=== PATIENT | female | born 1945 | race Caucasian/White ===

== ENCOUNTER 2016-10-20 13:34 | Emergency (ER) | payer OTHER ==
[2016-10-20 13:40] VITALS: BMI 27.8
--- NOTE | 2016-10-20 14:43 | PDOC ---
History of Present Illness - General History Source: Patient Exam Limitations: No Limitations <Sumi West - Last Filed: 10/20/16 18:34> <Grace Kim - Last Filed: 10/27/16 07:38> - General Chief Complaint: Chest Pain Stated Complaint: CHEST PAIN/PALPALTIONS Time Seen by Provider: 10/20/16 14:27 - History of Present Illness Initial Comments: CHIEF COMPLAINT: 71 y/o afebrile female with PMH HTN, DM, GERD and hypothyroidism c/o chest pain and palpitations since last night. HISTORY OF PRESENT ILLNESS: The patient denies f/c, n/v/d, SOB, abd pain, back pain, hematuria, dysuria. PCP is Dr. Stewart Exhibits Curator is Dr. Leal Vital signs on arrival are notable for pulse of 95. REVIEW OF SYSTEMS: GENERAL/CONSTITUTIONAL: No fever/chills. No weakness. No weight change. HEAD, EYES, EARS, NOSE AND THROAT: No change in vision. No ear pain or discharge. No sore throat. CARDIOVASCULAR: +chest pain. +palpitations. No shortness of breath. RESPIRATORY: No cough, wheezing, or hemoptysis. GASTROINTESTINAL: No abd pain, nausea, vomiting, diarrhea. GENITOURINARY: No dysuria, frequency, or change in urination. MUSCULOSKELETAL: No joint or muscle swelling or pain. No neck or back pain. SKIN: No rash or easy bruising. NEUROLOGIC: No headache, vertigo, loss of consciousness, or loss of sensation. PSYCHIATRIC: No depression or anxiety. ENDOCRINE: No increased thirst. No abnormal weight change. HEMATOLOGIC/LYMPHATIC: No anemia, easy bleeding, or history of blood clots. ALLERGIC/IMMUNOLOGIC: No hives or skin allergy. No latex allergy. PHYSICAL EXAM: GENERAL: The patient is awake, alert, and fully oriented, in no acute distress. She is well appearing, in NAD or obvious discomfort. HEAD: Normal with no signs of trauma. ENT: Pupils equal, round and reactive to light, extraocular movements intact, sclera anicteric, conjunctiva clear. Neck supple. LUNGS: Clear to auscultation bilaterally. Normal excursion. No respiratory distress or use of accessory muscles. CV: RRR, S1/S2, no MRG. Cap refill < 2 sec. ABDOMEN: Soft, non-distended, non-tender even to deep palpation, no hepatomegaly or splenomegaly, no masses. EXTREMITIES: Normal range of motion, no edema. NEUROLOGICAL: Normal speech, normal gait. CN II-XII grossly intact. PSYCH: Normal mood, normal affect. SKIN: Warm, dry, normal turgor, no rashes or lesions noted. (Sumi West) Past History - Past Medical History Cardiac Disorders: Yes (thyroid) Diabetes: Yes HTN: Yes Hypercholesterolemia: Yes - Surgical History Cholecystectomy: Yes Neurologic Surgery: No - Psycho/Social/Smoking Cessation Hx Anxiety: Yes Suicidal Ideation: Yes Smoking History: Never smoked Have you smoked in the past 12 months: No Information on smoking cessation initiated: No Hx Alcohol Use: No Substance Use Type: None <Sumi West - Last Filed: 10/20/16 18:34> <Grace Kim - Last Filed: 10/27/16 07:38> - Past Medical History Allergies/Adverse Reactions: Allergies Allergy/AdvReac Type Severity Reaction Status Date / Time No Known Allergies Allergy Verified 10/20/16 13:41 Home Medications: Ambulatory Orders Enalapril Maleate [Vasotec] 20 mg PO DAILY 04/16/16 Metformin HCl 500 mg PO BID 04/16/16 Omeprazole [Prilosec (RX)] 20 mg PO DAILY 04/16/16 Aspirin [ASA -] 81 mg PO DAILY 09/29/16 Calcitriol [Calcitriol -] 0.25 mcg PO BID #30 capsule 09/30/16 Calcium (Oyster Shell) [Os-Remy 500MG -] 1 tab PO BID 10/20/16 Levothyroxine Sodium [Levo-T] 100 mcg PO DAILY 10/20/16 - Vital Signs Last Vital Signs Temp Pulse Resp BP Pulse Ox 100.7 F H 86 16 120/50 96 10/20/16 18:43 10/20/16 18:43 10/20/16 18:43 10/20/16 18:43 10/20/16 18:43 Heart Score/ECG Review <Sumi West - Last Filed: 10/20/16 18:34> <Grace Kim - Last Filed: 10/27/16 07:38> - ECG Intrepretation Comment:: Twelve-lead EKG was performed and reviewed by Dr. Kim. There is normal sinus rhythm with a normal rate. Left axis deviation. The intervals are normal. There are no ST or T wave abnormalities. Impression: Abnormal twelve-lead EKG (Sumi West) ED Treatment Course - LABORATORY CBC & Chemistry Diagram: 10/20/16 14:40 10/20/16 14:40 <Sumi West - Last Filed: 10/20/16 18:34> - LABORATORY CBC & Chemistry Diagram: 10/20/16 14:40 10/20/16 14:40 <Grace Kim - Last Filed: 10/27/16 07:38> - ADDITIONAL ORDERS Additional order review: 10/20/16 14:40 RBC 4.34 MCV 93.4 MCHC 32.7 RDW 13.7 MPV 7.8 Neutrophils % 74.5 D Lymphocytes % 11.2 D Monocytes % 14.1 H Eosinophils % 0.1 D Basophils % 0.1 - RADIOLOGY Radiology Studies Ordered: Category Date Time Status CHEST X-RAY PORTABLE* [RAD] Stat Radiology 10/20/16 14:05 Completed - Medications Given in the ED: ED Medications Discontinued Medications Generic Name Dose Route Start Last Admin Trade Name Freq PRN Reason Stop Dose Admin Ketorolac Tromethamine 30 mg 10/20/16 18:31 10/20/16 18:39 Toradol Injection - IVPUSH 10/20/16 18:32 30 mg ONCE ONE Administration Medical Decision Making <Sumi West - Last Filed: 10/20/16 18:34> <Grace Kim - Last Filed: 10/27/16 07:38> - Medical Decision Making A/P: 71 y/o afebrile female with chest pain and palpitations since last night. Plan is as follows: 1. EKG 2. Labs 3. CXR CXR IMPRESSION: No acute disease. EKG normal Labs normal; patient has had symptoms for the past 24 hours so troponin should have been elevated by now. TSH - 5.86; down from 62 on 09/29/16. The patient was given her results and toradol. Suggested she take PO ibuprofen for pain and f/u with Dr. Stewart and Dr. Leal as soon as possible. Instructed her to return to the ER with any worsening or concerning symptoms. The patient verbalizes understanding of all instructions, has no further questions and is awaiting discharge. (Sumi West) *DC/Admit/Observation/Transfer <Sumi West - Last Filed: 10/20/16 18:34> <Grace Kim - Last Filed: 10/27/16 07:38> Diagnosis at time of Disposition: Atypical chest pain, Elevated TSH - Discharge Dispostion Disposition: HOME Condition at time of disposition: Good - Referrals Referrals: Dixon Stewart [Primary Care Provider] - Call tomorrow Adolph Leal MD [Staff Physician] - Call tomorrow - Patient Instructions Printed Discharge Instructions: DI for Atypical Chest Pain Additional Instructions: Discharge Instructions: -Take 600mg of over the counter Ibuprofen for pain with food if needed -Call Dr. Stewart and Dr. Leal tomorrow for follow up -Your TSH was 5.86. Please inform Dr. Stewart as he may need to increase your levothyroxine dose -Return to the ER with any worsening or concerning symptoms - Attestations Physician Attestion: I reviewed the case with the mid-level practitioner and agree with the mid- level practitioner's assessment, diagnosis and disposition. (Grace Kim)
[2016-10-20 15:15] LABS: BASOPHIL 0.1 % (0-2.0); EOSINOPHIL 0.1 % (0-4.5); MCH 30.6 pg (25.7-33.7); MCHC 32.7 g/dl (32.0-36.0); MEAN CELL VOLUME 93.4 fl (80-96); MEAN PLT VOLUME 7.8 fl (7.5-11.1); NEUTROPHILS 74.5 % (42.8-82.8); PLATELET COUNT 159 K/MM3 (134-434); RDW 13.7 % (11.6-15.6); WHITE BLOOD COUNT 6.3 K/mm3 (4.0-10.0)
[2016-10-20 15:48] LABS: ALBUMIN 4.3 g/dl (3.4-5.0); ANION GAP 9 (8-16); BILIRUBIN,TOTAL 0.6 mg/dL (0.2-1.0); CALCIUM 8.3 mg/dL (8.5-10.1); CO2 31 mmol/L (21-32); CREATININE 0.8 mg/dL (0.55-1.02); GLUCOSE,RANDOM 93 mg/dL (74-106); SGOT/AST 23 U/L (15-37); SGPT/ALT 25 U/L (12-78); TOT PROT 7.5 g/dl (6.4-8.2)
[2016-10-20 15:49] LABS: ALK PHOS 48 U/L (45-117)
[2016-10-20 15:56] LABS: THYROID STIMULATING HORMONE 5.86 uIU/ml (0.358-3.74); TROPONIN I < 0.02 ng/ml (0.00-0.05)
--- NOTE | 2016-10-20 17:19 | EKG ---
Test Reason : Blood Pressure : / mmHG Vent. Rate : 093 BPM Atrial Rate : 093 BPM P-R Int : 140 ms QRS Dur : 106 ms QT Int : 366 ms P-R-T Axes : 021 -42 033 degrees QTc Int : 455 ms NORMAL SINUS RHYTHM LEFT AXIS DEVIATION ABNORMAL ECG WHEN COMPARED WITH ECG OF 29-SEP-2016 06:45, VENT. RATE HAS INCREASED Confirmed by ARIS CERVANTES MD ([id number]) on 10/20/2016 5:18:37 PM Referred By: Confirmed By:ARIS CERVANTES MD
[2016-10-20] MEDS ORDERED: KETOROLAC TROMETHAMINE 30 MG/1 ML VIAL IVPUSH ONE (18:31)
[2016-10-20] MEDS ORDERED: KETOROLAC TROMETHAMINE 30 MG/1 ML VIAL ONE (18:36)
[2016-10-20 18:44] VITALS: BP 120/50; PULSE 86; TEMP 100.7
== END 2016-10-20 19:08 | disposition home or self-care (01) ==
LOC: JER 13:34
PROC: 3E0333Z Introduction of Anti-inflammatory into Peripheral Vein, Percutaneous Approach (ICD-10-PCS; principal; 2016-10-20)
DX: R07.89 Other chest pain (principal); I10 Essential (primary) hypertension; E11.9 Type 2 diabetes mellitus without complications; Z79.84 Long term (current) use of oral hypoglycemic drugs; E78.00 Pure hypercholesterolemia, unspecified; E03.9 Hypothyroidism, unspecified
CPT/HCPCS: 36415; 71010-TC; 80053; 82550; 84439; 84443; 84481; 84484; 85025; 93005; 93010; 96374; 99284-25

== ENCOUNTER 2016-10-31 14:21 | Emergency (ER) | payer OTHER ==
[2016-10-31 14:42] VITALS: TEMP 98; BMI 25.7
[2016-10-31] MEDS ORDERED: ACETAMINOPHEN 325 MG TABLET (FP) PO ONE (15:53)
--- NOTE | 2016-10-31 15:54 | PDOC ---
History of Present Illness - General History Source: Patient - History of Present Illness Initial Comments: 10/31/16 16:52 The patient is a 71 year old Moroccan speaking female with a significant past medical history of HTN, DM, and thyroid disease s/p resection who presents to the Emergency Department with complaints of 100.3 fever, bodyache, productive cough with yellowish sputum, and palpitations for several days. Pt also reports experiencing a sharp chest pain when she coughs, but she denies any other chest pain or SOB. She denies taking any recent Tylenol or Motrin. Pt was given Z-Praful recently by Dr. Stewart for her symptoms. She denies abdominal pain, nausea, vomiting, diarrhea, hematuria, dysuria, legs swelling, headache, hemoptysis. No recent travel or sick contacts. PCP: Dr. Stewart <Yuli Chang - Last Filed: 10/31/16 16:52> <Omer Avendano - Last Filed: 11/02/16 11:49> - General Chief Complaint: Palpitations Stated Complaint: HEART PALPITATIONS/fever Time Seen by Provider: 10/31/16 15:15 Past History <Yuli Chang - Last Filed: 10/31/16 16:52> - Past Medical History Cardiac Disorders: Yes (thyroid) Diabetes: Yes HTN: Yes Hypercholesterolemia: Yes - Surgical History Cholecystectomy: Yes Neurologic Surgery: No - Psycho/Social/Smoking Cessation Hx Anxiety: Yes Suicidal Ideation: Yes Smoking History: Never smoked Have you smoked in the past 12 months: No Information on smoking cessation initiated: No Hx Alcohol Use: No Drug/Substance Use Hx: No Substance Use Type: None <Omer Avendano - Last Filed: 11/02/16 11:49> - Past Medical History Allergies/Adverse Reactions: Allergies Allergy/AdvReac Type Severity Reaction Status Date / Time No Known Allergies Allergy Verified 10/31/16 14:39 Home Medications: Ambulatory Orders Acetaminophen [Tylenol -] 1,000 mg PO Q6H 10/31/16 Alendronate Na [Fosamax] 35 mg PO Q7D 10/31/16 Aspirin [ASA -] 81 mg PO DAILY 10/31/16 Calcitriol [Rocaltrol -] 0.25 mcg PO BID 10/31/16 Calcium (Oyster Shell) [Os-Remy 500Mg -] 500 mg NR BID 10/31/16 Diphenhydramine HCl/Zinc Acet [Benadryl 2% Cream] 1 applic TP ASDIR 10/31/16 Divalproex Sodium [Depakote] 500 mg PO BID 10/31/16 Enalapril Maleate [Vasotec] 20 mg PO DAILY 10/31/16 Levothyroxine [Synthroid -] 100 mcg PO DAILY 10/31/16 Meclizine HCl 25 mg PO DAILY 10/31/16 Metformin HCl [Metformin HCl ER] 500 mg PO BID 10/31/16 Omeprazole 20 mg PO DAILY 10/31/16 Simvastatin [Zocor -] 20 mg PO HS 10/31/16 Review of Systems - Review of Systems Able to Perform ROS?: Yes Comments:: 10/31/16 16:53 CONSTITUTIONAL: Yes: bodyache, fever No reported: Chills, Diaphoresis, Malaise, Loss of Appetite HEENT: No reported: Rhinorrhea, Nasal Congestion, Throat Pain, Throat Swelling, Difficulty Swallowing, Mouth Swelling, Ear Pain, Eye Pain, Visual Changes CARDIOVASCULAR: Yes: palpitations No reported: Chest Pain, Syncope, Lightheadedness, Peripheral Edema RESPIRATORY: Yes: cough No reported: Shortness of Breath, SOB with Exertion, Orthopnea, Wheezing, Stridor, Hemoptysis GASTROINTESTINAL: No reported: Abdominal pain, Abdominal Distension, Nausea, Vomiting, Diarrhea, Constipation, Melena, Hematochezia GENITOURINARY: No reported: Dysuria, Frequency, Urgency, Hesitancy, Flank Pain, Genital Pain MUSCULOSKELETAL: No reported: Myalgia, Arthralgia, Joint Swelling, Back pain, Neck Pain SKIN: No reported: Rash, Itching, Pallor HEMEATOLOGIC/IMMUNOLOGIC: No reported: Easy Bleeding, Easy Bruising, Lymphadenopathy, Frequent infections ENDOCRINE: No reported: Unexplained Weight Gain, Unexplained Weight Loss, Heat Intolerance , Cold Intolerance NEUROLOGIC: No reported: Headache, Focal Weakness, Paresthesias, Vertigo, Lightheadedness, Unsteady Gait, Seizure, Mental Status Changes, Incontinence PSYCHIATRIC: No reported: Anxiety, Depression All Other Systems: Reviewed and Negative <Yuli Chang - Last Filed: 10/31/16 16:52> *Physical Exam - Vital Signs Last Vital Signs Temp Pulse Resp BP Pulse Ox 98.0 F 88 18 151/85 100 10/31/16 14:40 10/31/16 16:43 10/31/16 14:40 10/31/16 14:40 10/31/16 16:43 - Physical Exam Comments: 10/31/16 16:53 GENERAL: The patient is awake, alert, and fully oriented, Nontoxic - in no acute distress. HEAD: Normocephalic, atraumatic. EYES: extraocular movements intact, sclera anicteric, conjunctiva clear. ENT: Normal voice, Moist mucous membranes. NECK: Normal range of motion, supple LUNGS: Breath sounds equal, clear to auscultation bilaterally. No wheezes, no rhonchi, no rales. HEART: Regular rate and rhythm, without murmur, rub or gallop. ABDOMEN: Soft, nontender, normoactive bowel sounds. No guarding, no rebound.No CVA tenderness EXTREMITIES: Normal range of motion, no edema. No clubbing or cyanosis. No cords, erythema, or tenderness. NEUROLOGICAL: No facial assymetry, Normal speech, PSYCH: Normal mood, normal affect. SKIN: Warm, Dry, normal turgor, <Yuli Chang - Last Filed: 10/31/16 16:52> - Vital Signs Last Vital Signs Temp Pulse Resp BP Pulse Ox 98.0 F 90 18 151/85 96 10/31/16 14:40 10/31/16 14:40 10/31/16 14:40 10/31/16 14:40 10/31/16 14:40 <Omer Avendano - Last Filed: 11/02/16 11:49> Heart Score/ECG Review - ECG Impressions Comment:: 10/31/16 15:53 Twelve-lead EKG was performed and reviewed by me. There is normal sinus rhythm with a normal rate. Rate of 78 Left axis deviation The intervals are normal. There is normal R wave progression There are no ST or T wave abnormalities. <Omer Avendano - Last Filed: 11/02/16 11:49> ED Treatment Course - LABORATORY CBC & Chemistry Diagram: 10/31/16 15:41 10/31/16 15:41 - ADDITIONAL ORDERS Additional order review: Laboratory Results 10/31/16 15:41 Sodium 143 Potassium 4.3 Chloride 103 Carbon Dioxide 29 Anion Gap 11 BUN 6 L D Creatinine 0.6 D Creat Clearance w eGFR > 60 Random Glucose 100 Calcium 7.4 L Total Bilirubin 0.6 AST 28 D ALT 51 D Alkaline Phosphatase 43 L Creatine Kinase 70 Troponin I < 0.02 Total Protein 7.1 Albumin 4.0 10/31/16 15:41 RBC 4.25 MCV 93.4 MCHC 33.9 RDW 13.7 MPV 7.5 Neutrophils % 61.4 Lymphocytes % 25.7 D Monocytes % 12.0 H Eosinophils % 0.1 Basophils % 0.8 D - Medications Given in the ED: ED Medications Discontinued Medications Generic Name Dose Route Start Last Admin Trade Name Crista PRN Reason Stop Dose Admin Acetaminophen 650 mg 10/31/16 15:53 10/31/16 16:21 Tylenol - PO 10/31/16 15:54 650 mg ONCE ONE Administration <Yuli Chang - Last Filed: 10/31/16 16:52> - LABORATORY CBC & Chemistry Diagram: 10/31/16 15:41 10/31/16 15:41 <Omer Avendano - Last Filed: 11/02/16 11:49> Medical Decision Making - Medical Decision Making 10/31/16 15:51 71y M hx of htn, hl, thyoroid disease s/p resection, presents with palpitation s - the patient endorses some fever/body aches for the past few days associated with chest congestion, and feeling generally weak. On exam the pt is well appearing in no distress, vitals were normal here. ?flue like illness will ck ekg to r/o arrthmia will ck ua to r/o uti cxr to r/o pna will ck labs to r/o leukocytosis, anemia, metabolic derangement. 10/31/16 17:47 pts labs reviewed ca low - pt states she has been skipping occasional doses of her calcium (s/p parathyroid resection along with her thyroid) pt also on calcitriol i discussed importance of taking her ca (pt states she doesnt like taking so many pills every day). cxr negative flu negative will dc the pt with pmd fu return precautions were discussed I discussed the physical exam findings, ancillary test results and final diagnoses with the patient. I answered all of the patient's questions. The patient was satisfied with the care received and felt comfortable with the discharge plan and treatment plan. The patient will call their primary care physician within 24 hours to arrange follow-up and will return to the Emergency Department with any new, persistent or worsening symptoms. <Omer Avendano - Last Filed: 11/02/16 11:49> *DC/Admit/Observation/Transfer - Attestations Scribe Attestion: 10/31/16 16:53 Documentation prepared by Yuli Chang, acting as medical claims assistant for Omer Avendano MD. <Yuli Chang - Last Filed: 10/31/16 16:52> - Discharge Dispostion Admit: No <Omer Avendano - Last Filed: 11/02/16 11:49> Diagnosis at time of Disposition: Flu-like symptoms, Palpitations, Hypocalcemia - Discharge Dispostion Disposition: HOME Condition at time of disposition: Improved - Referrals Referrals: Dixon Stewart [Primary Care Provider] - - Patient Instructions Printed Discharge Instructions: DI for Viral Upper Respiratory Infection -- Adult Additional Instructions: Vuelva al departamento de emergencia inmediatamente con CUALQUIER nuevo, persistente o empeorando los sntomas incluyendo cualquier dificultad que respira, dolor de pecho fiebre persistente u otras preocupaciones. Debe llamar y hacer el seguimiento con snow mdico en 2-3 pizano para devante evaluaci n ms detallada de doug sntomas. Los resultados fueron discutidos con usted. Por favor, asegrese de que snow mdico revise los resultados de snow evaluacin de emergencia. Return to the emergency department immediately with ANY new, persistent or worsening symptoms including any difficulty breathing, chest pain persistent fever or other concerns. You MUST call and follow up with your doctor in 2-3 days for further evaluation of your symptoms. Results were discussed with you. Please make sure your doctor reviews the results of your emergency evaluation. Print Language: MAURITIAN
[2016-10-31 15:59] LABS: BASOPHIL 0.8 % (0-2.0); EOSINOPHIL 0.1 % (0-4.5); MCH 31.7 pg (25.7-33.7); MCHC 33.9 g/dl (32.0-36.0); MEAN CELL VOLUME 93.4 fl (80-96); MEAN PLT VOLUME 7.5 fl (7.5-11.1); NEUTROPHILS 61.4 % (42.8-82.8); PLATELET COUNT 245 K/MM3 (134-434); RDW 13.7 % (11.6-15.6); WHITE BLOOD COUNT 6.4 K/mm3 (4.0-10.0)
[2016-10-31] MEDS ORDERED: ACETAMINOPHEN 325 MG TABLET (FP) ONE (16:19)
[2016-10-31 16:43] LABS: ANION GAP 11 (8-16); BILIRUBIN,TOTAL 0.6 mg/dL (0.2-1.0); CALCIUM 7.4 mg/dL (8.5-10.1); CO2 29 mmol/L (21-32); CREATININE 0.6 mg/dL (0.55-1.02); GLUCOSE,RANDOM 100 mg/dL (74-106); SGPT/ALT 51 U/L (12-78); TOT PROT 7.1 g/dl (6.4-8.2)
[2016-10-31 16:45] LABS: ALK PHOS 43 U/L (45-117); TROPONIN I < 0.02 ng/ml (0.00-0.05)
[2016-10-31 16:48] LABS: SGOT/AST 28 U/L (15-37)
[2016-10-31 17:18] LABS: URINE APPEARANCE CLEAR; URINE BILIRUBIN NEGATIVE (NEGATIVE); URINE BLOOD NEGATIVE (NEGATIVE); URINE COLOR STRAW; URINE GLUCOSE (UA) NEGATIVE (NEGATIVE); URINE KETONE NEGATIVE (NEGATIVE); URINE NITRITE NEGATIVE (NEGATIVE); URINE PROTEIN NEGATIVE (NEGATIVE); URINE UROBILINOGEN NEGATIVE E.U./dl (0.2-1.0)
[2016-10-31 17:22] LABS: URINE LEUK ESTERASE TRACE (NEGATIVE)
[2016-10-31 17:59] LABS: URINE RBC <1 /hpf (0-3); URINE WBC 1 /hpf (3-5)
[2016-10-31] MEDS ORDERED: CALCIUM (OYSTER SHELL) 500 MG TABLET (FP) PO ONE (18:00)
[2016-10-31 18:45] VITALS: BP 121/72; PULSE 77
--- NOTE | 2016-11-03 12:45 | EKG ---
Test Reason : Blood Pressure : / mmHG Vent. Rate : 070 BPM Atrial Rate : 070 BPM P-R Int : 168 ms QRS Dur : 110 ms QT Int : 428 ms P-R-T Axes : 051 -42 043 degrees QTc Int : 462 ms NORMAL SINUS RHYTHM LEFT AXIS DEVIATION ABNORMAL ECG WHEN COMPARED WITH ECG OF 20-OCT-2016 13:39, NO SIGNIFICANT CHANGE WAS FOUND Confirmed by ARIS CERVANTES MD ([id number]) on 11/03/2016 12:44:54 PM Referred By: Confirmed By:ARIS CERVANTES MD
--- NOTE | 2016-11-03 12:49 | EKG ---
Test Reason : Blood Pressure : / mmHG Vent. Rate : 078 BPM Atrial Rate : 078 BPM P-R Int : 172 ms QRS Dur : 100 ms QT Int : 406 ms P-R-T Axes : 045 -36 035 degrees QTc Int : 462 ms NORMAL SINUS RHYTHM LEFT AXIS DEVIATION ABNORMAL ECG WHEN COMPARED WITH ECG OF 20-OCT-2016 13:39, NO SIGNIFICANT CHANGE WAS FOUND Confirmed by ARIS CERVANTES MD ([id number]) on 11/03/2016 12:49:26 PM Referred By: Confirmed By:ARIS CERVANTES MD
== END 2016-10-31 18:45 | disposition home or self-care (01) ==
LOC: JER 14:21
DX: J11.1 Influenza due to unidentified influenza virus with other respiratory manifestations (principal); E11.9 Type 2 diabetes mellitus without complications; I10 Essential (primary) hypertension; E78.00 Pure hypercholesterolemia, unspecified; E07.9 Disorder of thyroid, unspecified
CPT/HCPCS: 36415; 71010-TC; 80053; 81003; 81015; 82550; 84484; 85025; 87804; 93005; 93010; 99285-25

== ENCOUNTER 2016-12-02 10:16 | Emergency (ER) | payer OTHER ==
[2016-12-02 10:32] VITALS: TEMP 98; BMI 26.5
--- NOTE | 2016-12-02 11:43 | PDOC ---
History of Present Illness - General History Source: Patient Exam Limitations: No Limitations - History of Present Illness Initial Comments: 12/02/16 11:46 The patient is a 71 year old ukrainian speaking female, with a significant past medical history of HTN, thyroid disease s/p resection (08/2016) and DM (diet controlled), who presents to the emergency department with an episode of nervousness, dizziness, and palpitations at 8am this morning. She reports feeling cold this morning and denies having any chest pain during this episode. She reports in addition of having some nausea and the sensation of wanting to vomit. She reports being unable to eat anything this morning. She denies having another episode since this morning. Patient reports feeling nervous because she took two doses of her 125mg synthroid medication accidentally. She reports the onset of her symptoms started after she had her second dose of the medication. She denies recent headache or dizziness. She denies recent nausea, vomit, diarrhea or constipation. She denies recent chest pain or shortness of breath. Allergies: NKA Past surgical history: See HPI. Cholecystectomy. Hysterectomy. Social history: Nonsmoker. PCP: <Jose Casey - Last Filed: 12/02/16 14:06> - General History Source: Patient, Old Records Exam Limitations: Language Barrier <Puja Bedoya - Last Filed: 12/02/16 16:34> - General Chief Complaint: Palpitations Stated Complaint: RX OD Time Seen by Provider: 12/02/16 11:09 Past History <Jose Casye - Last Filed: 12/02/16 14:06> - Past Medical History Cardiac Disorders: Yes (thyroid) Diabetes: Yes HTN: Yes Hypercholesterolemia: Yes - Surgical History Cholecystectomy: Yes Neurologic Surgery: No - Psycho/Social/Smoking Cessation Hx Anxiety: Yes Suicidal Ideation: Yes Smoking History: Never smoked Have you smoked in the past 12 months: No Information on smoking cessation initiated: No Hx Alcohol Use: No Drug/Substance Use Hx: No Substance Use Type: None <Puja Bedoya - Last Filed: 12/02/16 16:34> - Past Medical History Allergies/Adverse Reactions: Allergies Allergy/AdvReac Type Severity Reaction Status Date / Time No Known Allergies Allergy Verified 12/02/16 10:18 Home Medications: Ambulatory Orders Alendronate Na [Fosamax] 35 mg PO Q7D 10/31/16 Aspirin [ASA -] 81 mg PO DAILY 10/31/16 Calcitriol [Rocaltrol -] 0.25 mcg PO BID 10/31/16 Calcium (Oyster Shell) [Os-Remy 500Mg -] 500 mg NR BID 10/31/16 Diphenhydramine HCl/Zinc Acet [Benadryl 2% Cream] 1 applic TP ASDIR 10/31/16 Divalproex Sodium [Depakote] 500 mg PO BID 10/31/16 Enalapril Maleate [Vasotec] 20 mg PO DAILY 10/31/16 Levothyroxine [Synthroid -] 100 mcg PO DAILY 10/31/16 Meclizine HCl 25 mg PO DAILY 10/31/16 Metformin HCl [Metformin HCl ER] 500 mg PO BID 10/31/16 Omeprazole 20 mg PO DAILY 10/31/16 Simvastatin [Zocor -] 20 mg PO HS 10/31/16 Review of Systems - Review of Systems Able to Perform ROS?: Yes Comments:: 12/02/16 11:46 CONSTITUTIONAL: +chills and dizziness. Absent: fever, no fatigue EYES: Absent: visual changes ENT: Absent: ear pain, no sore throat CARDIOVASCULAR: Absent: chest pain, + palpitations RESPIRATORY: Absent: cough, no SOB GI: Absent: abdominal pain, no nausea, no vomiting, no constipation, no diarrhea GENITOURINARY: Absent: dysuria, no frequency, no hematuria MUSKULOSKELETAL: Absent: back pain, no arthralgia, no myalgia SKIN: Absent: rash NEURO: Absent: headache <Jose Casey - Last Filed: 12/02/16 14:06> *Physical Exam - Vital Signs Last Vital Signs Temp Pulse Resp BP Pulse Ox 98.0 F 88 18 162/87 100 12/02/16 10:28 12/02/16 10:28 12/02/16 10:28 12/02/16 10:28 12/02/16 10:28 - Physical Exam Comments: 12/02/16 11:47 GENERAL: Well developed, well nourished. Awake and alert. No acute distress. HEENT: Normocephalic, atraumatic. PERRLA, EOMI. No conjunctival pallor. Sclera are non- icteric. Moist mucous membranes. Oropharynx is clear. NECK: Supple. Full ROM. No JVD. Carotid pulses 2+ and symmetric, without bruits. No thyromegaly. No lymphadenopathy. CARDIOVASCULAR: Regular rate and rhythm. No murmurs, rubs, or gallops. Distal pulses are 2+ and symmetric. PULMONARY: No evidence of respiratory distress. Lungs clear to auscultation bilaterally. No wheezing, rales or rhonchi. ABDOMINAL: Soft. Non-tender. Non-distended. No rebound or guarding. No organomegaly. Normoactive bowel sounds. MUSCULOSKELETAL Normal range of motion at all joints. No bony deformities or tenderness. No CVA tenderness. EXTREMITIES: No cyanosis. No clubbing. No edema. No calf tenderness. SKIN: Warm and dry. Normal capillary refill. No rashes. No jaundice. NEUROLOGICAL: Alert, awake, appropriate. Cranial nerves 2-12 intact. No deficits to light touch and temperature in face, upper extremities and lower extremities. No motor deficits in the in face, upper extremities and lower extremities. Normoreflexic in the upper and lower extremities. Normal speech. Toes are down- going bilaterally. Gait is normal without ataxia. PSYCHIATRIC: Cooperative. Good eye contact. Appropriate mood and affect. <Jose Casey - Last Filed: 12/02/16 14:06> - Vital Signs Last Vital Signs Temp Pulse Resp BP Pulse Ox 98.0 F 88 18 162/87 100 12/02/16 10:28 12/02/16 10:28 12/02/16 10:28 12/02/16 10:28 12/02/16 10:28 <Puja Bedoya - Last Filed: 12/02/16 16:34> ED Treatment Course - LABORATORY CBC & Chemistry Diagram: 12/02/16 12:00 12/02/16 12:00 - RADIOLOGY Radiograph Interpretation: 12/02/16 14:06 CHEST X-RAY impressions reported by : No acute disease. <Jose Casey - Last Filed: 12/02/16 14:06> - LABORATORY CBC & Chemistry Diagram: 12/02/16 12:00 12/02/16 12:00 <Puja Bedoya - Last Filed: 12/02/16 16:34> Medical Decision Making - Medical Decision Making 12/02/16 11:50 71-year-old female with history of hypertension, diet controlled diabetes and hypothyroid disease following thyroid surgery who presents to the emergency Department with complaints of palpitations earlier today after thinking that she took an extra dose of her levothyroxin. Differential diagnosis includes but is not limited to: ACS, cardiac arrhythmia, electrolyte abnormality, overactive thyroid, dehydration, toxic/metabolic derangement, infection. Plan: 1. EKG 2. Labs 3. Urine 4. CXR 5. Observe and reevaluate 12/02/16 15:14 Addendum: The patient's labs were reviewed and are noted in the EMR. The TSH is low. This could account for her symptoms of palpitations. We will discharge home and I have explained to the patient that she needs to follow-up with her regular physician so that her thyroid medication can be adjusted accordingly. I have given the patient copies of all her lab studies. I have also advised the patient to return to the emergency department should her symptoms persist, worsen, or new symptoms arise. <Puja Bedoya - Last Filed: 12/02/16 16:34> *DC/Admit/Observation/Transfer - Attestations Scribe Attestion: 12/02/16 11:47 Documentation prepared by Jose Casey, acting as medical psychotherapist for Puja Bedoya MD. <Jose Casey - Last Filed: 12/02/16 14:06> - Discharge Dispostion Admit: No - Attestations Physician Attestion: 12/02/16 11:51 I, Dr. Puja Bedoya, attest that the scribes documentation that appears above has been prepared under my direction and personally reviewed by me in its entirety. I confirmed that the note above accurately reflects all work, treatment, procedures, and medical decision-making performed by me. <Puja Bedoya - Last Filed: 12/02/16 16:34> Diagnosis at time of Disposition: Palpitations - Discharge Dispostion Disposition: HOME Condition at time of disposition: Stable - Referrals Referrals: Moreno Ryan MD [Primary Care Provider] - - Patient Instructions Printed Discharge Instructions: DI for Palpitations Additional Instructions: Your thyroid levels are high low and therefore you need to have your thyroid medications adjusted. Please continue to take your medication as prescribed until you follow-up with your primary care physician. Please follow up with your primary care physician within one week. Please return to the emergency department if your symptoms persist, worsen or new symptoms arise. Print Language: CHINESE
[2016-12-02 12:17] LABS: BASOPHIL 0.4 % (0-2.0); EOSINOPHIL 0.1 % (0-4.5); MCHC 34.2 g/dl (32.0-36.0); MEAN CELL VOLUME 93.6 fl (80-96); MEAN PLT VOLUME 7.8 fl (7.5-11.1); NEUTROPHILS 78.1 % (42.8-82.8); PLATELET COUNT 185 K/MM3 (134-434); RDW 13.6 % (11.6-15.6); WHITE BLOOD COUNT 7.7 K/mm3 (4.0-10.0)
[2016-12-02 12:38] LABS: ALBUMIN 3.9 g/dl (3.4-5.0); ANION GAP 9 (8-16); CALCIUM 8.4 mg/dL (8.5-10.1); CO2 30 mmol/L (21-32); GLUCOSE,RANDOM 98 mg/dL (74-106); MAGNESIUM 2.2 mg/dL (1.8-2.4)
[2016-12-02 12:44] LABS: ALK PHOS 43 U/L (45-117); BILIRUBIN,TOTAL 0.5 mg/dL (0.2-1.0); CREATININE 0.7 mg/dL (0.55-1.02); PHOSPHOROUS 3.9 mg/dL (2.5-4.9); SGOT/AST 17 U/L (15-37); SGPT/ALT 22 U/L (12-78); TOT PROT 6.8 g/dl (6.4-8.2); TROPONIN I < 0.02 ng/ml (0.00-0.05)
[2016-12-02 13:56] LABS: URINE APPEARANCE CLEAR; URINE BILIRUBIN NEGATIVE (NEGATIVE); URINE BLOOD NEGATIVE (NEGATIVE); URINE COLOR COLORLESS; URINE GLUCOSE (UA) NEGATIVE (NEGATIVE); URINE KETONE NEGATIVE (NEGATIVE); URINE LEUK ESTERASE NEGATIVE (NEGATIVE); URINE NITRITE NEGATIVE (NEGATIVE); URINE PROTEIN NEGATIVE (NEGATIVE); URINE UROBILINOGEN NEGATIVE E.U./dl (0.2-1.0)
[2016-12-02 16:55] VITALS: BP 150/77; PULSE 74
--- NOTE | 2016-12-02 21:24 | EKG ---
Test Reason : Blood Pressure : / mmHG Vent. Rate : 063 BPM Atrial Rate : 063 BPM P-R Int : 172 ms QRS Dur : 102 ms QT Int : 402 ms P-R-T Axes : 048 -23 048 degrees QTc Int : 411 ms NORMAL SINUS RHYTHM NORMAL ECG WHEN COMPARED WITH ECG OF 31-OCT-2016 16:53, NO SIGNIFICANT CHANGE WAS FOUND Confirmed by ARIS CERVANTES MD ([id number]) on 12/02/2016 9:23:59 PM Referred By: Confirmed By:ARIS CERVANTES MD
== END 2016-12-02 16:56 | disposition home or self-care (01) ==
LOC: JER 10:16
DX: R00.2 Palpitations (principal); T38.1X1A Poisoning by thyroid hormones and substitutes, accidental (unintentional), initial encounter; Y92.038 Other place in apartment as the place of occurrence of the external cause; E07.89 Other specified disorders of thyroid; I10 Essential (primary) hypertension; E11.9 Type 2 diabetes mellitus without complications; Z79.84 Long term (current) use of oral hypoglycemic drugs; E78.00 Pure hypercholesterolemia, unspecified
CPT/HCPCS: 36415; 71010-TC; 80053; 81003; 82550; 83735; 84100; 84443; 84484; 85025; 93005; 93010; 99283-25

== ENCOUNTER 2016-12-10 19:54 | Emergency (ER) | payer OTHER ==
--- NOTE | 2016-12-10 20:11 | PDOC ---
Rapid Medical Evaluation Time Seen by Provider: 12/10/16 20:08 Medical Evaluation: Allergies Allergy/AdvReac Type Severity Reaction Status Date / Time No Known Allergies Allergy Verified 12/02/16 10:18 12/10/16 20:08 71 yo F c/o palpitations with left side numbness x1 week which has worsened today. Denies sob.
[2016-12-10 20:13] VITALS: BP 153/73; PULSE 81; TEMP 97.7; BMI 26.5
[2016-12-10 20:56] LABS: BASOPHIL 0.1 % (0-2.0); EOSINOPHIL 0.3 % (0-4.5); MCH 31.5 pg (25.7-33.7); MEAN CELL VOLUME 92.8 fl (80-96); MEAN PLT VOLUME 8.3 fl (7.5-11.1); NEUTROPHILS 60.6 % (42.8-82.8); PLATELET COUNT 195 K/MM3 (134-434); RDW 13.2 % (11.6-15.6); WHITE BLOOD COUNT 7.8 K/mm3 (4.0-10.0)
--- NOTE | 2016-12-10 21:01 | PDOC ---
[id number] 4d No Limitations, Language Barrier (kazakh speaking female ) <Eun Pichardo - Last Filed: 12/10/16 22:10> - General History Source: Patient <Kiko Ying - Last Filed: 12/11/16 19:25> - General Chief Complaint: Palpitations Stated Complaint: PALPITATIONS Time Seen by Provider: 12/10/16 20:08 - History of Present Illness Initial Comments: 12/10/16 21:35 The patient is a 71 year old female with significant past medical history of hypertension, hyperlipidemia, thyroid disease s/p resection (08/2016) and diabetes diet controlled who presents to the ED with 5 days of left-sided numbness and weakness. Patient also has complaints of anxiety, being nervous, occasional palpitations, and some lightheadedness. She denies LOC, diaphoresis, chest pain, SOB, jaw pain, shoulder pain, arm pain, nausea, or vomiting. Patient was seen on 12/02 for nervousness, dizziness, and palpitations. At that time, she admitted to taking two doses of her 125mg synthroid medication accidentally and subsequently developing her symptoms. Patient was treated and discharged to follow up with PMD. She states after visiting her PMD, her PMD decreased her dose of synthroid, calcitriol and calcium. The patient denies fever, chills, cough, abdominal pain, and diarrhea. Allergies: NKDA Social History: No alcohol, tobacco, or drug use reported. Past Surgical History: Cholecystectomy. Hysterectomy. s/p thyroidotomy (08/2016) PCP: Dr. Ryan (Eun Pichardo) Past History <Eun Pichardo - Last Filed: 12/10/16 22:10> - Past Medical History Cardiac Disorders: Yes Diabetes: Yes HTN: Yes Hypercholesterolemia: Yes Thyroid Disease: Yes (thyroid) - Surgical History Cholecystectomy: Yes Neurologic Surgery: No - Psycho/Social/Smoking Cessation Hx Anxiety: Yes Suicidal Ideation: Yes Smoking History: Never smoked Have you smoked in the past 12 months: No Hx Alcohol Use: No Drug/Substance Use Hx: No Substance Use Type: None <AcjevonKiko - Last Filed: 12/11/16 19:25> - Past Medical History Allergies/Adverse Reactions: Allergies Allergy/AdvReac Type Severity Reaction Status Date / Time No Known Allergies Allergy Verified 12/10/16 20:10 Home Medications: Ambulatory Orders Alendronate Na [Fosamax] 35 mg PO Q7D 10/31/16 Aspirin [ASA -] 81 mg PO DAILY 10/31/16 Calcitriol [Rocaltrol -] 0.25 mcg PO BID 10/31/16 Calcium (Oyster Shell) [Os-Remy 500Mg -] 500 mg NR BID 10/31/16 Diphenhydramine HCl/Zinc Acet [Benadryl 2% Cream] 1 applic TP ASDIR 10/31/16 Divalproex Sodium [Depakote] 500 mg PO BID 10/31/16 Enalapril Maleate [Vasotec] 20 mg PO DAILY 10/31/16 Levothyroxine [Synthroid -] 100 mcg PO DAILY 10/31/16 Meclizine HCl 25 mg PO DAILY 10/31/16 Metformin HCl [Metformin HCl ER] 500 mg PO BID 10/31/16 Omeprazole 20 mg PO DAILY 10/31/16 Simvastatin [Zocor -] 20 mg PO HS 10/31/16 Review of Systems - Review of Systems Able to Perform ROS?: Yes <Eun Pichardo - Last Filed: 12/10/16 22:10> <Kiko Ying - Last Filed: 12/11/16 19:25> - Review of Systems Comments:: 12/10/16 21:36 CONSTITUTIONAL: Absent: fever, chills, diaphoresis, generalized weakness, malaise, loss of appetite HEENT: Absent: rhinorrhea, nasal congestion, throat pain, throat swelling, difficulty swallowing, mouth swelling, ear pain, eye pain, visual Changes CARDIOVASCULAR: +palpitations, lightheadedness Absent: chest pain, syncope, irregular heart rate , peripheral edema RESPIRATORY: Absent: cough, shortness of breath, dyspnea with exertion, orthopnea, wheezing, stridor, hemoptysis GASTROINTESTINAL: Absent: abdominal pain, abdominal distension, nausea, vomiting, diarrhea, melena , hematochezia GENITOURINARY: Absent: dysuria, frequency, urgency, hesitancy, hematuria, flank pain, genital pain MUSCULOSKELETAL: Absent: myalgia, arthralgia, joint swelling SKIN: Absent: rash, itching, pallor NEUROLOGIC: +left-sided numbness and weakness Absent: headache, dizziness, unsteady gait, seizure, mental status changes, bladder or bowel incontinence PSYCHIATRIC: +anxiety, nervous Absent: depression, suicidal or homicidal ideation, hallucinations. (Eun Pichardo) *Physical Exam <Justice Pichardovita - Last Filed: 12/10/16 22:10> <Kiko Ying - Last Filed: 12/11/16 19:25> - Vital Signs Last Vital Signs Temp Pulse Resp BP Pulse Ox 97.7 F 81 18 153/73 99 12/10/16 20:10 12/10/16 20:10 12/10/16 20:10 12/10/16 20:10 12/10/16 20:10 - Physical Exam Comments: 12/10/16 21:36 GENERAL: Well developed, well nourished. Awake and alert. No acute distress. HEENT: Normocephalic, atraumatic. PERRLA, EOMI. No conjunctival pallor. Sclera are non- icteric. Moist mucous membranes. Oropharynx is clear. NECK: Supple. Full ROM. No JVD. Carotid pulses 2+ and symmetric, without bruits. No thyromegaly. No lymphadenopathy. CARDIOVASCULAR: Regular rate and rhythm. No murmurs, rubs, or gallops. Distal pulses are 2+ and symmetric. PULMONARY: No evidence of respiratory distress. Lungs clear to auscultation bilaterally. No wheezing, rales or rhonchi. ABDOMINAL: Soft. Non-tender. Non-distended. No rebound or guarding. No organomegaly. Normoactive bowel sounds. MUSCULOSKELETAL Normal range of motion at all joints. No bony deformities or tenderness. No CVA tenderness. EXTREMITIES: No cyanosis. No clubbing. No edema. No calf tenderness. SKIN: Warm and dry. Normal capillary refill. No rashes. No jaundice. NEUROLOGICAL: Alert, awake, appropriate. Cranial nerves 2-12 intact. Moving all extremities. No gross focal neurological deficits. PSYCHIATRIC: Cooperative. Good eye contact. Appropriate mood and affect. (Eun Pichardo) Heart Score/ECG Review <AnacelenaciscoEun - Last Filed: 12/10/16 22:10> <Kiko Ying - Last Filed: 12/11/16 19:25> - ECG Impressions Comment:: 12/10/16 22:10 NSR @66bpm (Eun Pichardo) ED Treatment Course - LABORATORY CBC & Chemistry Diagram: 12/10/16 20:45 12/10/16 20:45 <Eun Pichardo - Last Filed: 12/10/16 22:10> - LABORATORY CBC & Chemistry Diagram: 12/10/16 20:45 12/10/16 20:45 <Kiko Ying - Last Filed: 12/11/16 19:25> - ADDITIONAL ORDERS Additional order review: 12/10/16 20:45 RBC 4.26 MCV 92.8 MCHC 34.0 RDW 13.2 MPV 8.3 Neutrophils % 60.6 D Lymphocytes % 29.8 D Monocytes % 9.2 Eosinophils % 0.3 D Basophils % 0.1 Medical Decision Making <Eun Pichardo - Last Filed: 12/10/16 22:10> <Kiko Ying - Last Filed: 12/11/16 19:25> - Medical Decision Making Dr. Ying: The scribe's documentation has been prepared under my direction and personally reviewed by me in its entirery. I confirm that the note above accurately reflects all work, treatment, procedures, and medical decision making performed by me. (Kiko Ying) *DC/Admit/Observation/Transfer <Eun Pichardo - Last Filed: 12/10/16 22:10> <Kiko Ying - Last Filed: 12/11/16 19:25> Diagnosis at time of Disposition: Palpitations - Discharge Dispostion Disposition: HOME Condition at time of disposition: Stable - Referrals Referrals: STAFF,NOT ON [Primary Care Provider] - - Attestations Scribe Attestion: 12/10/16 21:36 Documentation prepared by Eun Pichardo, acting as medical records director for Kiko Ying MD (Eun Pichardo)
[2016-12-10 21:09] LABS: INR 1.03 (0.82-1.09); PROTHROMBIN TIME (PATIENT) 11.3 SEC (9.98-11.88)
[2016-12-10 21:30] LABS: ALBUMIN 4.1 g/dl (3.4-5.0); ALK PHOS 43 U/L (45-117); ANION GAP 13 (8-16); BILIRUBIN,TOTAL 0.4 mg/dL (0.2-1.0); CALCIUM 8.9 mg/dL (8.5-10.1); CO2 27 mmol/L (21-32); CREATININE 0.8 mg/dL (0.55-1.02); GLUCOSE,RANDOM 92 mg/dL (74-106); SGOT/AST 20 U/L (15-37); SGPT/ALT 23 U/L (12-78); TOT PROT 7.3 g/dl (6.4-8.2)
[2016-12-10 21:41] LABS: TROPONIN I < 0.02 ng/ml (0.00-0.05)
--- NOTE | 2016-12-11 14:09 | EKG ---
Test Reason : Blood Pressure : / mmHG Vent. Rate : 066 BPM Atrial Rate : 066 BPM P-R Int : 162 ms QRS Dur : 100 ms QT Int : 396 ms P-R-T Axes : 033 -26 023 degrees QTc Int : 415 ms NORMAL SINUS RHYTHM NORMAL ECG WHEN COMPARED WITH ECG OF 02-DEC-2016 11:58, NO SIGNIFICANT CHANGE WAS FOUND Confirmed by YAS LOVE MD ([id number]) on 12/11/2016 2:08:42 PM Referred By: Confirmed By:YAS LOVE MD
== END 2016-12-11 01:29 | disposition home or self-care (01) ==
LOC: JER 19:54
DX: R00.2 Palpitations (principal); I10 Essential (primary) hypertension; E78.5 Hyperlipidemia, unspecified; E11.9 Type 2 diabetes mellitus without complications
CPT/HCPCS: 36415; 70450-TC; 71020-TC; 80053; 82550; 84484; 85025; 85610; 93005; 93010; 99283-25